=== PATIENT | male | born 1960 | race Two or more races ===

== ENCOUNTER 2018-10-16 07:12 | Inpatient (IN) | payer OTHER ==
[~2018-10-16] VITALS: Ht 175.3 cm; Wt 102.1 kg
[2018-10-16] MEDS ORDERED: MOBIC15 MG PO (08:07)
[2018-10-16] MEDS ORDERED: ALLER CLEAR (08:08)
[2018-10-23] MEDS ORDERED: ALLERCLEAR10 M1 PO (08:03)
[2018-10-25] MEDS ORDERED: PERCOCET 5-3251 EACH PO (15:23)
[2018-10-25] MEDS ORDERED: DUI500 PO (15:23)
[2018-10-25] MEDS ORDERED: ELIQUIS2.5 MG PO (15:23)
[2018-10-25] MEDS ORDERED: AMBIEN10 MG PO (15:23)
== END 2018-10-25 18:39 | DRG 470 ==
LOC: O/R 08:30 → SURH 10-23 05:55 → O/R 10-23 05:55 → EDBD 10-23 08:30 → O/R 10-23 08:30 → SURH 10-23 15:54
PROVIDERS: ADMIT Orthopaedic Surgery
PROC: 0MNN0ZZ Release Right Knee Bursa and Ligament, Open Approach (ICD-10-PCS; 2018-10-23)
PROC: 0SRC0J9 Replacement of Right Knee Joint with Synthetic Substitute, Cemented, Open Approach (ICD-10-PCS; principal; 2018-10-23 09:45)
DX: M17.11 Unilateral primary osteoarthritis, right knee (principal); D62 Acute posthemorrhagic anemia; J45.909 Unspecified asthma, uncomplicated; M85.461 Solitary bone cyst, right tibia and fibula; S86.011A Strain of right Achilles tendon, initial encounter

== ENCOUNTER → 2018-11-01 | Emergency (ER) | payer OTHER ==
[~2018-11-01] VITALS: Ht 175.3 cm; Wt 99.8 kg
[~2018-11-01] MED LIST: ALLER CLEAR; ALLERCLEAR10 M1 PO; AMBIEN10 MG PO; CIPRO500 MG PO; DUI500 PO; ELIQUIS2.5 MG PO; MOBIC15 MG PO; PERCOCET 5-3251 EACH PO
== END | disposition home or self-care (01) ==
LOC: ER 17:11
DX: L03.115 Cellulitis of right lower limb (principal)

== ENCOUNTER 2022-12-07 10:12 | Outpatient (CLI) | payer OTHER ==
[2022-12-07 11:08] LABS: HEMATOCRIT 46.4 % (39.0-48.0); HEMOGLOBIN 16.2 g/dL (13-16.00); MEAN CELL VOLUME 95.5 fL (80.0-100.00); MEAN CORPUSCULAR HEMOGLOBIN 33.4 pg (27.00-32.0); PLATELET COUNT 236 K/uL (150-450); RED BLOOD COUNT 4.86 M/uL (4.00-6.00); RED CELL DISTRIBUTION WIDTH 14.1 % (11.5-14.5)
[2022-12-07 11:21] LABS: URINE APPEARANCE Clear; URINE BILIRRUBIN Negative (NEGATIVE); URINE BLOOD Negative; URINE COLOR Dark Yellow; URINE GLUCOSE Negative (NEGATIVE); URINE LEUKOCYTE Trace; URINE NITRATE Negative; URINE PROTEIN Negative (NEGATIVE)
[2022-12-07 11:22] LABS: URINE EPITHELIAL CELLS 6.7 uL (0.0-38.8); URINE RBC 17.3 uL (0.0-20.8); URINE WBC 4.4 uL (0.0-23.2)
[2022-12-07 11:33] LABS: INR 1.11; PARTIAL THROMBOPLASTIN TIME 28.1 SECONDS (22.0-34.0); PROTHROMBIN TIME 11.6 SECONDS (9.0-11.5)
[2022-12-07 11:49] LABS: URINE BACTERIA 3.7 uL (0.0-1933)
[2022-12-07 11:50] LABS: BILIRUBIN TOTAL 1.05 mg/dL (0.3-1.2); CALCIUM 9.2 mg/dL (8.5-10.1); CREATININE SERUM 0.78 mg/dL (0.70-1.30); GFR 100.53; GLOBULINA 3.2 G/DL (2.4-3.5); POTASSIUM 3.65 mEq/L (3.5-5.1); TOTAL PROTEIN 7.2 gm/dL (6.4-8.2)
== END 2022-12-07 10:21 | disposition home or self-care (01) ==
LOC: LAB 10:12
PROVIDERS: ATTEND Family Medicine
DX: Z01.811 Encounter for preprocedural respiratory examination (principal); Z01.810 Encounter for preprocedural cardiovascular examination; K57.32 Diverticulitis of large intestine without perforation or abscess without bleeding

== ENCOUNTER 2022-12-26 10:30 | Inpatient (IN) | payer OTHER ==
[~2022-12-26] VITALS: Ht 175.3 cm; Wt 189.6 kg
[2022-12-26] MEDS ORDERED: ELIQUIS5 MG (13:39)
[2022-12-26] MEDS ORDERED: LIPITOR20 MG (13:39)
[2022-12-31 18:47] LABS: HEMATOCRIT 41.1 % (39.0-48.0); HEMOGLOBIN 13.5 g/dL (13-16.00); MEAN CELL VOLUME 98.1 fL (80.0-100.00); MEAN CORPUSCULAR HEMOGLOBIN 32.4 pg (27.00-32.0); PLATELET COUNT 200 K/uL (150-450); RED BLOOD COUNT 4.18 M/uL (4.00-6.00); RED CELL DISTRIBUTION WIDTH 14.3 % (11.5-14.5)
[2022-12-31 19:40] LABS: ABG PH 7.439 (7.35-7.45); ABG pCO2 41.4 mmHg (35-45)
[2022-12-31 19:41] LABS: BASE EXCESS 2.9 mmol/l; BICARBONATE 27.4 mmol/l (23-25); SaO2 91.8 %; Tco2 28.7 mmol/l
[2022-12-31 19:42] LABS: allen test SATISFACTORY; o2 36 %; puncture site RADIAL RIGHT
[2023-01-01 21:48] LABS: HEMATOCRIT 37.3 % (39.0-48.0); HEMOGLOBIN 12.8 g/dL (13-16.00); MEAN CELL VOLUME 95.9 fL (80.0-100.00); MEAN CORPUSCULAR HEMOGLOBIN 32.9 pg (27.00-32.0); MEAN CORPUSCULAR HGB CONC 34.3 g/dl (32.0-36.0); PLATELET COUNT 192 K/uL (150-450); RED BLOOD COUNT 3.89 M/uL (4.00-6.00); RED CELL DISTRIBUTION WIDTH 13.9 % (11.5-14.5)
[2023-01-02 13:48] LABS: HEMATOCRIT 38.7 % (39.0-48.0); HEMOGLOBIN 13.1 g/dL (13-16.00); MEAN CELL VOLUME 95.7 fL (80.0-100.00); MEAN CORPUSCULAR HEMOGLOBIN 32.3 pg (27.00-32.0); MEAN CORPUSCULAR HGB CONC 33.8 g/dl (32.0-36.0); PLATELET COUNT 214 K/uL (150-450); RED BLOOD COUNT 4.04 M/uL (4.00-6.00); RED CELL DISTRIBUTION WIDTH 14.4 % (11.5-14.5)
[2023-01-03 07:17] LABS: HEMATOCRIT 37.4 % (39.0-48.0); HEMOGLOBIN 12.7 g/dL (13-16.00); MEAN CELL VOLUME 96.8 fL (80.0-100.00); MEAN CORPUSCULAR HEMOGLOBIN 32.7 pg (27.00-32.0); MEAN CORPUSCULAR HGB CONC 33.8 g/dl (32.0-36.0); PLATELET COUNT 225 K/uL (150-450); RED BLOOD COUNT 3.87 M/uL (4.00-6.00)
[2023-01-03] MEDS ORDERED: SINGULAIR4 M1 PO (10:43)
== END 2023-01-03 13:03 | disposition home or self-care (01) | DRG 331 ==
LOC: O/R 12-30 07:48 → SURH 12-30 07:48
PROVIDERS: Internal Medicine; ADMIT Specialist; ATTEND Specialist
PROC: 0DBP4ZZ Excision of Rectum, Percutaneous Endoscopic Approach (ICD-10-PCS; 2022-12-30)
PROC: 0DTN4ZZ Resection of Sigmoid Colon, Percutaneous Endoscopic Approach (ICD-10-PCS; principal; 2022-12-30 09:45)
DX: K57.32 Diverticulitis of large intestine without perforation or abscess without bleeding (principal); I48.91 Unspecified atrial fibrillation; J44.9 Chronic obstructive pulmonary disease, unspecified; F17.200 Nicotine dependence, unspecified, uncomplicated